=== PATIENT | female | born 1965 | race Two or more races ===

== ENCOUNTER 2016-12-01 15:18 | Emergency (ER) | payer MEDICARE, MEDICAID ==
[~2016-12-01] VITALS: Ht 152.4 cm; Wt 68.0 kg
[2016-12-01 16:51] VITALS: BP 131/70
== END 2016-12-01 17:33 | disposition home or self-care (01) ==
LOC: ER 15:18
DX: S62.627A Displaced fracture of middle phalanx of left little finger, initial encounter for closed fracture (principal); Z98.51 Tubal ligation status; Z90.49 Acquired absence of other specified parts of digestive tract; Y08.89XA Assault by other specified means, initial encounter; Y93.89 Activity, other specified; Y99.8 Other external cause status; Y92.89 Other specified places as the place of occurrence of the external cause
CPT/HCPCS: 29125; 73140